=== PATIENT | female | born 1970 | race African-American/Black ===

== ENCOUNTER 2017-01-20 14:31 | Emergency (ER) | payer OTHER ==
[~2017-01-20] VITALS: Ht 165.1 cm; Wt 143.0 kg
[2017-01-20 14:38] VITALS: BP 147/92; PULSE 90; RESP 16; TEMP 98.4; O2SAT 99
[2017-01-20 14:56] LABS: BLOOD, URINE TRACE (NEG); KETONE, URINE NEG (NEG); NITRITE,URINE NEG (NEG); PH, URINE 5.5 (5.0-8.5)
[2017-01-20] MEDS ORDERED: SODIUM CHLOR 0.9% 1000 ML INJ 1,000 ML IV ONE (15:00)
[2017-01-20] MEDS ORDERED: SODIUM CHLORIDE 0.9% FLUSH 5 ML FLUSH IVF PRN (15:00)
--- NOTE | 2017-01-20 15:02 | PD ---
HPI Chief Complaint: General Weakness Time Seen by Provider: 14:44 Travel History International Travel<30 days: No Contact w/Intl Traveler<30days: No Traveled to known affect area: No History of Present Illness HPI Patient is a 46-year-old morbidly obese female presents emergency department with complaint of generalized weakness. Over the course the last 6 weeks she has had increasing weakness, fatigue. She notes polyuria, polydipsia dysuria, hematuria. Patient is not a known diabetic, but a friend of hers took a blood sugar and it was elevated at 398 prompting her ER visit. Patient states that is been approximately 7+ years since she has last seen a primary care physician for annual physical and blood work. She does not have health insurance. [facility] Past Medical History Medical History: Denies Significant Hx Diabetes: No (DENIES) ?: Not Past Surgical History Hysterectomy: Yes (PARTIAL) Social History Tobacco Use: No Allergies-Medications (Allergen,Severity, Reaction): Coded Allergies: Morphine (Verified Allergy, Unknown, Itching, 01/20/17) Reported Meds & Prescriptions Reported Meds & Active Scripts Active No Active Prescriptions or Reported Medications Review of Systems Except as stated in HPI: all other systems reviewed are Neg Physical Exam Narrative GENERAL: Morbidly obese female in no acute distress SKIN: Warm and dry. HEAD: Normocephalic. EYES: No scleral icterus. No injection or drainage. ENT: Mucous membranes pink and moist. NECK: Supple CARDIOVASCULAR: Regular rate and rhythm. No murmur appreciated. RESPIRATORY: No accessory muscle use. Clear to auscultation. Breath sounds equal bilaterally. GASTROINTESTINAL: Abdomen soft, non-tender, nondistended. Morbidly obese MUSCULOSKELETAL: Normal gait. No edema. NEUROLOGICAL: Awake and alert. Normal speech. PSYCHIATRIC: Appropriate mood and affect; insight and judgment normal. Data Data Last Documented VS Vital Signs Date Time Temp Pulse Resp B/P Pulse Ox O2 Delivery O2 Flow Rate FiO2 01/20/17 15:18 96 01/20/17 14:38 98.4 90 16 147/92 Orders Urinalysis - C+S If Indicated (01/20/17 14:45) Complete Blood Count With Diff (01/20/17 14:58) Beta Hydroxybutyrate (Acetone) (01/20/17 14:58) Blood Glucose (01/20/17 14:58) Ecg Monitoring (01/20/17 14:58) Iv Access Insert/Monitor (01/20/17 14:58) Oximetry (01/20/17 14:58) Sodium Chloride 0.9% Flush (Ns Flush) (01/20/17 15:00) Basic Metabolic Panel (Bmp) (01/20/17 14:58) Sodium Chlor 0.9% 1000 Ml Inj (Ns 1000 M (01/20/17 15:00) Urine Culture (01/20/17 14:51) Labs Laboratory Tests Test 01/20/17 01/20/17 14:51 15:05 Urine Collection Type CLEAN CATCH Urine Color STRAW Urine Turbidity SLIGHT Urine pH 5.5 Urine Specific [place] 1.035 Urine Protein NEG mg/dL Urine Glucose (UA) 1000 OR GREATER mg/dL Urine Ketones NEG mg/dL Urine Occult Blood TRACE Urine Nitrite NEG Urine Bilirubin NEG Urine Leukocyte Esterase SMALL Urine RBC 4-9 /hpf Urine WBC 9-14 /hpf Urine Squamous Epithelial 6-8 /hpf Cells Urine Amorphous Sediment FEW Urine Bacteria FEW /hpf Microscopic Urinalysis Comment CULTURE INDICATED Urine Collection Time 1451 White Blood Count 8.4 TH/MM3 Red Blood Count 4.68 MIL/MM3 Hemoglobin 12.4 GM/DL Hematocrit 39.0 % Mean Corpuscular Volume 83.4 FL Mean Corpuscular Hemoglobin 26.5 PG Mean Corpuscular Hemoglobin 31.8 % Concent Red Cell Distribution Width 12.7 % Platelet Count 260 TH/MM3 Mean Platelet Volume 8.5 FL Neutrophils (%) (Auto) 62.7 % Lymphocytes (%) (Auto) 30.9 % Monocytes (%) (Auto) 5.0 % Eosinophils (%) (Auto) 1.1 % Basophils (%) (Auto) 0.3 % Neutrophils # (Auto) 5.3 TH/MM3 Lymphocytes # (Auto) 2.6 TH/MM3 Monocytes # (Auto) 0.4 TH/MM3 Eosinophils # (Auto) 0.1 TH/MM3 Basophils # (Auto) 0.0 TH/MM3 CBC Comment DIFF FINAL Differential Comment Sodium Level 138 MEQ/L Potassium Level 4.1 MEQ/L Chloride Level 101 MEQ/L Carbon Dioxide Level 27.8 MEQ/L Anion Gap 9 MEQ/L Blood Urea Nitrogen 9 MG/DL Creatinine 0.85 MG/DL Estimat Glomerular Filtration 86 ML/MIN Rate Random Glucose 325 MG/DL Calcium Level 9.4 MG/DL [facility] Medical Decision Making Medical Screen Exam Complete: Yes Emergency Medical Condition: Yes Medical Record Reviewed: Yes Differential Diagnosis 46-year-old morbidly obese female here with 6 weeks of generalized weakness, polyuria, polydipsia. Differential includes new onset diabetes, dehydration, electrolyte abnormality, symptomatic anemia, UTI. Narrative Course Patient placed on monitor, IV established and blood obtained. Blood glucose elevated at 298. Given 1 L normal saline bolus. CBC, BMP, beta hydroxybutyrate , urinalysis obtained and notable for blood glucose 325. No ketones there is referred anion gap. Patient will be started on metformin for home. Urinalysis does show glucose, but also small leukocyte esterase with some white cells and few bacteria. Will treat with Bactrim for possible UTI. Diagnosis Primary Impression: New onset type 2 diabetes mellitus Additional Impressions: UTI (urinary tract infection) Qualified Code: N30.00 - Acute cystitis without hematuria Obesity Qualified Code: E66.01 - Morbid obesity, unspecified obesity type Referrals: Vee Jacobs MD call for appointment Primary Care Physician call for appointment Additional Instructions: Antibiotics as prescribed. Metformin as prescribed. Metformin is free of [employer]. Follow-up with primary care provider to establish care and manage diabetes as outpatient. Med/Other Pt SpecificInfo: Prescription(s) given Scripts Metformin 500 Mg [id number] Mg PO BIDPC #60 TAB Ref 0 With meals Prov:Lizeth aBck MD 01/20/17 Sulfamethoxazole-Trimethoprim (Bactrim DS)800-160 Mg Tab1 Tab PO BID #6 TAB Ref 0 Prov:Lizeth Back MD 01/20/17 Disposition: DISCHARGE HOME Condition: Stable Lizeth Back MD Jan 20, 2017 15:01
[2017-01-20 15:04] LABS: GLUCOSE,URINE 1000 OR GREATER mg/dL (NEG)
[2017-01-20 15:05] LABS: METHOD OF COLLECTION CLEAN CATCH; URINE COLOR STRAW (YELLW/STRAW)
[2017-01-20 15:15] LABS: AUTOMATED NEUTROPHIL # 5.3 TH/MM3 (1.8-7.7); BASOPHIL % 0.3 % (0.0-2.0); EOSINOPHIL # 0.1 TH/MM3 (0-0.4); EOSINOPHIL % 1.1 % (0.0-4.0); HEMO FLAGS DIFF FINAL; LYMPH % 30.9 % (9.0-44.0); LYMPHOCYTE # 2.6 TH/MM3 (1.0-4.8); MEAN CELL VOLUME 83.4 FL (80.0-100.0); MEAN CORPUSCULAR HEMOGLOBIN 26.5 PG (27.0-34.0); MEAN CORPUSCULAR HGB CONC 31.8 % (32.0-36.0); NEUT % 62.7 % (16.0-70.0); PLATELET COUNT 260 TH/MM3 (150-450); RED BLOOD COUNT 4.68 MIL/MM3 (4.00-5.30); RED CELL DISTRIBUTION WIDTH 12.7 % (11.6-17.2); WHITE BLOOD COUNT 8.4 TH/MM3 (4.0-11.0)
[2017-01-20 15:18] VITALS: O2SAT 96
[2017-01-20 15:26] LABS: POTASSIUM 4.1 MEQ/L (3.5-5.1)
[2017-01-20 15:27] LABS: BACTERIA, URINE FEW /hpf; COMMENT (UR) CULTURE INDICATED; COMMENT2 (UR) MUCOUS PRESENT; CULTURE IF INDICATED CULTURE INDICATED
[2017-01-20 15:30] LABS: BICARBONATE 27.8 MEQ/L (21.0-32.0)
[2017-01-20] MEDS ORDERED: BACT800T5 PO (15:42)
[2017-01-20] MEDS ORDERED: METF500T PO (15:42)
[2017-01-20 15:44] LABS: BETA-HYDROXYBUTYRATE 0.13 MMOL/L (0.00-0.39)
== END 2017-01-20 16:08 | disposition home or self-care (01) ==
LOC: PHED 14:31
DX: E11.9 Type 2 diabetes mellitus without complications (principal); N39.0 Urinary tract infection, site not specified; E66.01 Morbid (severe) obesity due to excess calories
CPT/HCPCS: 80048; 81001; 82010; 85025; 87086; 96360; 99284; J7030

== ENCOUNTER 2017-03-19 22:26 | Emergency (ER) | payer OTHER ==
[~2017-03-19] VITALS: Ht 160 cm; Wt 146.3 kg
[~2017-03-19 22:26] MED LIST: BACT800T5 PO; METF500T PO
[2017-03-19 22:32] VITALS: BP 138/88; PULSE 77; RESP 16; TEMP 98.2; O2SAT 97
[2017-03-19] MEDS ORDERED: SODIUM CHLOR 0.9% 1000 ML INJ 1,000 ML IV ONE (22:42)
[2017-03-19 22:44] VITALS: BP 138/88; PULSE 77; RESP 18; TEMP 98.2; O2SAT 97
[2017-03-19] MEDS ORDERED: PROCHLORPERAZINE INJ 10 MG/2 ML VIAL IVP ONE (22:45)
[2017-03-19] MEDS ORDERED: diphenhydrAMINE HCL 50 MG/ML VIAL IVP ONE (22:45)
[2017-03-19] MEDS ORDERED: SODIUM CHLORIDE 0.9% FLUSH 10 ML FLUSH IVF PRN (22:45)
[2017-03-19] MEDS ORDERED: KETOROLAC TROMETHAMINE 30 MG/ML (IVP) VIAL IVP ONE (22:45)
[2017-03-19 22:56] VITALS: RESP 18; O2SAT 97
[2017-03-19] MEDS ORDERED: HYDROmorphone HCL PF 1 MG/ML VIAL IVP ONE (23:00)
--- NOTE | 2017-03-19 23:00 | PD ---
HPI Chief Complaint: Headache Time Seen by Provider: 22:42 Travel History International Travel<30 days: No Contact w/Intl Traveler<30days: No Traveled to known affect area: No History of Present Illness HPI The patient is a 47-year-old female who complains of a gradual onset of a bifrontal headache and retro-orbital headache 2 days ago. The patient is a type II diabetic but she ran out of her metformin approximately 2 weeks ago. She did not see a primary care physician about her diabetes. She does have nausea without vomiting. She states the last time she had a headache like this was about 2 years ago. She denies any history of migraine headaches. She denies any focal neurologic change, fever or diarrhea. She does have photophobia/phonophobia PFSH Past Medical History Diabetes: Yes Diminished Hearing: No ?: Not Past Surgical History Section: Yes (x3) Hysterectomy: Yes Social History Alcohol Use: Yes (wine occ) Tobacco Use: No Substance Use: No Allergies-Medications (Allergen,Severity, Reaction): Coded Allergies: Morphine (Verified Allergy, Unknown, Itching, 03/19/17) Reported Meds & Prescriptions Reported Meds & Active Scripts Active Review of Systems Except as stated in HPI: all other systems reviewed are Neg Physical Exam Narrative GENERAL: The patient is alert, obese, anxious appearing in moderate amount of distress with her retro-orbital headache. Her vital signs are normal. SKIN: Focused skin assessment warm/dry. HEAD: Atraumatic. Normocephalic. EYES: Pupils equal and round. No scleral icterus. No injection or drainage. Fundi appear sharp and venous pulsations are seen in the upright position. ENT: No nasal bleeding or discharge. Mucous membranes pink and moist. NECK: Trachea midline. No JVD. There is no meningismus and the patient can flex neck fully so that the chin touches the chest. CARDIOVASCULAR: Regular rate and rhythm. No murmur appreciated. RESPIRATORY: No accessory muscle use. Clear to auscultation. Breath sounds equal bilaterally. GASTROINTESTINAL: Abdomen soft, non-tender, nondistended. Hepatic and splenic margins not palpable. MUSCULOSKELETAL: No obvious deformities. No clubbing. No cyanosis. No edema. NEUROLOGICAL: Awake and alert. No obvious cranial nerve deficits. Motor grossly within normal limits. Normal speech and gait. PSYCHIATRIC: The patient does appear anxious; insight and judgment normal. Data Data Last Documented VS Vital Signs Date Time Temp Pulse Resp B/P Pulse Ox O2 Delivery O2 Flow Rate FiO2 03/19/17 23:56 80 18 142/86 99 Room Air 03/19/17 22:44 98.2 Orders Electrocardiogram (03/19/17 22:42) Complete Blood Count With Diff (03/19/17 22:42) Comprehensive Metabolic Panel (03/19/17 22:42) Magnesium (Mg) (03/19/17 22:42) Troponin I (03/19/17 22:42) Ecg Monitoring (03/19/17 22:42) Iv Access Insert/Monitor (03/19/17 22:42) Oximetry (03/19/17 22:42) Oxygen Administration (03/19/17 22:42) Sodium Chloride 0.9% Flush (Ns Flush) (03/19/17 22:45) Ketorolac Inj (Toradol Inj) (03/19/17 22:45) Prochlorperazine Inj (Compazine Inj) (03/19/17 22:45) Diphenhydramine Inj (Benadryl Inj) (03/19/17 22:45) Sodium Chlor 0.9% 1000 Ml Inj (Ns 1000 M (03/19/17 22:42) Hydromorphone Pf Inj (Dilaudid Pf Inj) (03/19/17 23:00) Labs Laboratory Tests Test 03/19/17 23:10 White Blood Count 8.1 TH/MM3 Red Blood Count 4.26 MIL/MM3 Hemoglobin 11.5 GM/DL Hematocrit 35.3 % Mean Corpuscular Volume 82.9 FL Mean Corpuscular Hemoglobin 26.9 PG Mean Corpuscular Hemoglobin 32.5 % Concent Red Cell Distribution Width 13.1 % Platelet Count 267 TH/MM3 Mean Platelet Volume 8.2 FL Neutrophils (%) (Auto) 55.7 % Lymphocytes (%) (Auto) 37.5 % Monocytes (%) (Auto) 4.7 % Eosinophils (%) (Auto) 1.7 % Basophils (%) (Auto) 0.4 % Neutrophils # (Auto) 4.5 TH/MM3 Lymphocytes # (Auto) 3.1 TH/MM3 Monocytes # (Auto) 0.4 TH/MM3 Eosinophils # (Auto) 0.1 TH/MM3 Basophils # (Auto) 0.0 TH/MM3 CBC Comment DIFF FINAL Differential Comment Sodium Level 141 MEQ/L Potassium Level 3.9 MEQ/L Chloride Level 104 MEQ/L Carbon Dioxide Level 27.1 MEQ/L Anion Gap 10 MEQ/L Blood Urea Nitrogen 11 MG/DL Creatinine 0.72 MG/DL Estimat Glomerular Filtration 104 ML/MIN Rate Random Glucose 193 MG/DL Calcium Level 8.5 MG/DL Magnesium Level 1.8 MG/DL Total Bilirubin 0.2 MG/DL Aspartate Amino Transf 18 U/L (AST/SGOT) Alanine Aminotransferase 23 U/L (ALT/SGPT) Alkaline Phosphatase 75 U/L Troponin I LESS THAN 0.02 NG/ML Total Protein 6.9 GM/DL Albumin 3.1 GM/DL [facility] Medical Decision Making Medical Screen Exam Complete: Yes Emergency Medical Condition: Yes Medical Record Reviewed: Yes Interpretation(s) The CBC is normal except for a minimal anemia with a hemoglobin of 11.5. The complete metabolic profile shows a glucose of 193 and albumen of 3.1 but is otherwise unremarkable. The troponin I is normal. The EKG shows normal sinus rhythm with a rate of 73 and is completely normal. Differential Diagnosis Migraine headache, tension headache, normal pressure hydrocephalusunlikely, intracranial bleedunlikely Narrative Course It is now 001 2 in the morning and the patient headache has resolved, she is not nauseated and she was sleeping. Impression: Headache. This may be a tension headache or atypical migraine headache. She did have photophobia/phonophobia and this may be a migraine headache. Diagnosis Primary Impression: Migraine headache Additional Instructions: Try to go home and sleep. This is good for a headache to sleep. Follow-up with your primary care physician this week or early next week about this headache. Med/Other Pt SpecificInfo: Prescription(s) given Scripts Promethazine (Phenergan)25 Mg Tab25 Mg PO Q6H PRN (Nausea/Vomiting) #20 TAB Ref 0 Prov:Jose Suazo MD 03/20/17 Disposition: 01 DISCHARGE HOME Condition: Stable Jose Suazo MD Mar 19, 2017 23:00
[2017-03-19 23:26] LABS: AUTOMATED NEUTROPHIL # 4.5 TH/MM3 (1.8-7.7); BASOPHIL % 0.4 % (0.0-2.0); EOSINOPHIL # 0.1 TH/MM3 (0-0.4); EOSINOPHIL % 1.7 % (0.0-4.0); HEMATOCRIT 35.3 % (35.0-46.0); HEMO FLAGS DIFF FINAL; LYMPH % 37.5 % (9.0-44.0); LYMPHOCYTE # 3.1 TH/MM3 (1.0-4.8); MEAN CELL VOLUME 82.9 FL (80.0-100.0); MEAN CORPUSCULAR HEMOGLOBIN 26.9 PG (27.0-34.0); MEAN CORPUSCULAR HGB CONC 32.5 % (32.0-36.0); MONO % 4.7 % (0.0-8.0); NEUT % 55.7 % (16.0-70.0); PLATELET COUNT 267 TH/MM3 (150-450); RED BLOOD COUNT 4.26 MIL/MM3 (4.00-5.30); RED CELL DISTRIBUTION WIDTH 13.1 % (11.6-17.2); WHITE BLOOD COUNT 8.1 TH/MM3 (4.0-11.0)
[2017-03-19 23:34] LABS: CHLORIDE 104 MEQ/L (98-107); POTASSIUM 3.9 MEQ/L (3.5-5.1); SODIUM (NA) 141 MEQ/L (136-145)
[2017-03-19 23:37] LABS: ANION GAP 10 MEQ/L (5-15); BICARBONATE 27.1 MEQ/L (21.0-32.0); BLOOD UREA NITROGEN 11 MG/DL (7-18); MAGNESIUM 1.8 MG/DL (1.5-2.5)
[2017-03-19 23:40] LABS: ALT (GPT) 23 U/L (10-53); AST (GOT) 18 U/L (15-37); GLOMERULAR FILTRATION RATE 104 ML/MIN (>89)
[2017-03-19 23:42] LABS: TOTAL BILIRUBIN ADULT 0.2 MG/DL (0.2-1.0)
[2017-03-19 23:43] LABS: ALKALINE PHOSPHATASE 75 U/L (45-117)
[2017-03-19 23:56] VITALS: BP 142/86; PULSE 80; RESP 18; O2SAT 99
[2017-03-20] MEDS ORDERED: PROM25TA5 PO (00:16)
[2017-03-20] MEDS ORDERED: BUTA1CAP PO (00:25)
[2017-03-20 00:46] VITALS: BP 121/64
--- NOTE | 2017-03-20 13:43 | EKG ---
Date Performed: 03/19/2017 Time Performed: 23:10:32 PTAGE: 47 years EKG: Sinus rhythm Normal ECG NO PREVIOUS TRACING DOCTOR: Chapincito Kumar Interpretating Date/Time 03/20/2017 13:41:02
== END 2017-03-20 00:47 | disposition home or self-care (01) ==
LOC: PHED 22:26
DX: G43.909 Migraine, unspecified, not intractable, without status migrainosus (principal); R11.0 Nausea; E11.9 Type 2 diabetes mellitus without complications
CPT/HCPCS: 80053; 83735; 84484; 85025; 93005; 96361; 96374; 96375; 99284; J0780; J1170; J1200; J1885; J7030

== ENCOUNTER 2018-01-18 21:46 | Emergency (ER) | payer SELFPAY ==
[~2018-01-18] VITALS: Ht 162.6 cm; Wt 143.0 kg
[~2018-01-18 21:46] MED LIST changes: -BACT800T5 PO; +BUTA1CAP PO; -METF500T PO; +PROM25TA5 PO
[2018-01-18 22:04] VITALS: BP 138/65; PULSE 79; RESP 18; TEMP 98.4; O2SAT 97
--- NOTE | 2018-01-18 22:39 | PD ---
HPI Chief Complaint: GI Complaint Time Seen by Provider: 22:31 Travel History International Travel<30 days: No Contact w/Intl Traveler<30days: No Traveled to known affect area: No History of Present Illness HPI The patient is a 47-year-old female that complains of nausea and vomiting without diarrhea beginning today. The patient also has dysuria, frequency and urgency. She denies any blood in the vomitus or stool. She denies any fever. The patient had metformin controlled diabetes but does not have a doctor and ran out of her diabetic medications. She is not taking any medications for about a year. She does not have any insurance and cannot afford a doctor. The patient has vertigo and any movements of her head causes her to get nauseated. PFSH Past Medical History Diabetes: Yes (no medications) Diminished Hearing: No Immunizations Current: Yes ?: Not Past Surgical History Section: Yes (x3) Hysterectomy: Yes Social History Alcohol Use: Yes (wine occ) Tobacco Use: No Substance Use: No Allergies-Medications (Allergen,Severity, Reaction): Coded Allergies: morphine (Unverified Allergy, Unknown, Itching, 01/19/18) Reported Meds & Prescriptions Reported Meds & Active Scripts Active Fioricet (Cgihskerpo-Qflibyknqtadf-Hikcjggm) 50-300-40 Mg Cap 1-2 Cap PO Q6H PRN Reported Ibuprofen 800 Mg Tab 800 Mg PO TID Flexeril (Cyclobenzaprine HCl) 5 Mg Tab 5 Mg PO TID Clindamycin (Clindamycin HCl) 150 Mg Cap 150 Mg PO Q6H Review of Systems Except as stated in HPI: all other systems reviewed are Neg Physical Exam Narrative GENERAL: The patient is alert, mildly dehydrated appearing, oriented 3, morbidly obese and minimal apparent distress with her nausea and vomiting. Her vital signs are normal. SKIN: Focused skin assessment warm/dry. HEAD: Atraumatic. Normocephalic. EYES: Pupils equal and round. No scleral icterus. No injection or drainage. ENT: No nasal bleeding or discharge. Mucous membranes pink and moist. NECK: Trachea midline. No JVD. CARDIOVASCULAR: Regular rate and rhythm. No murmur appreciated. RESPIRATORY: No accessory muscle use. Clear to auscultation. Breath sounds equal bilaterally. GASTROINTESTINAL: Abdomen soft, with minimal tenderness to direct palpation in the midline epigastrium, nondistended. Hepatic and splenic margins not palpable. No guarding or rebound is present. MUSCULOSKELETAL: No obvious deformities. No clubbing. No cyanosis. No edema. NEUROLOGICAL: Awake and alert. No obvious cranial nerve deficits. Motor grossly within normal limits. Normal speech. PSYCHIATRIC: Appropriate mood and affect; insight and judgment normal. Data Data Last Documented VS Vital Signs Date Time Temp Pulse Resp B/P (MAP) Pulse Ox O2 Delivery O2 Flow Rate FiO2 01/18/18 23:15 73 16 141/63 (89) 99 Room Air 01/18/18 22:04 98.4 Orders Orders Ondansetron Inj (Zofran Inj) (01/18/18 22:45) Sodium Chlor 0.9% 1000 Ml Inj (Ns 1000 M (01/18/18 22:45) Beta Hcg (Quant/Titer) (01/18/18 22:31) Complete Blood Count With Diff (01/18/18 22:31) Comprehensive Metabolic Panel (01/18/18 22:31) Lipase (01/18/18 22:31) Urinalysis - C+S If Indicated (01/18/18 22:31) Iv Access Insert/Monitor (01/18/18 22:31) Ecg Monitoring (01/18/18 22:31) Oximetry (01/18/18 22:31) Sodium Chloride 0.9% Flush (Ns Flush) (01/18/18 22:45) Beta Hydroxybutyrate (Acetone) (01/18/18 22:30) Urine Culture (01/18/18 22:35) Ondansetron Inj (Zofran Inj) (01/18/18 23:45) Ketorolac Inj (Toradol Inj) (01/19/18 00:00) Labs Laboratory Tests Test 01/18/18 22:30 01/18/18 22:35 White Blood Count 8.1 TH/MM3 Red Blood Count 4.53 MIL/MM3 Hemoglobin 12.7 GM/DL Hematocrit 37.8 % Mean Corpuscular Volume 83.3 FL Mean Corpuscular Hemoglobin 28.0 PG Mean Corpuscular Hemoglobin Concent 33.6 % Red Cell Distribution Width 12.9 % Platelet Count 264 TH/MM3 Mean Platelet Volume 8.9 FL Neutrophils (%) (Auto) 63.7 % Lymphocytes (%) (Auto) 28.1 % Monocytes (%) (Auto) 5.7 % Eosinophils (%) (Auto) 2.0 % Basophils (%) (Auto) 0.5 % Neutrophils # (Auto) 5.1 TH/MM3 Lymphocytes # (Auto) 2.3 TH/MM3 Monocytes # (Auto) 0.5 TH/MM3 Eosinophils # (Auto) 0.2 TH/MM3 Basophils # (Auto) 0.0 TH/MM3 CBC Comment DIFF FINAL Differential Comment Blood Urea Nitrogen 11 MG/DL Creatinine 0.88 MG/DL Random Glucose 291 MG/DL Total Protein 7.2 GM/DL Albumin 3.1 GM/DL Calcium Level 8.1 MG/DL Alkaline Phosphatase 102 U/L Aspartate Amino Transf (AST/SGOT) 19 U/L Alanine Aminotransferase (ALT/SGPT) 23 U/L Total Bilirubin 0.2 MG/DL Sodium Level 135 MEQ/L Potassium Level 4.0 MEQ/L Chloride Level 101 MEQ/L Carbon Dioxide Level 27.8 MEQ/L Anion Gap 6 MEQ/L Estimat Glomerular Filtration Rate 83 ML/MIN Lipase 171 U/L Human Chorionic Gonadotropin, Quant LESS THAN 1 MIU/ML B-Hydroxybutyrate 0.16 MMOL/L Urine Color YELLOW Urine Turbidity SLIGHT Urine pH 6.5 Urine Specific [place] 1.034 Urine Protein NEG mg/dL Urine Glucose (UA) 1000 OR GREATER mg/dL Urine Ketones TRACE mg/dL Urine Occult Blood NEG Urine Nitrite NEG Urine Bilirubin NEG Urine Leukocyte Esterase SMALL Urine WBC 15-19 /hpf Urine Squamous Epithelial Cells > 8 /hpf Urine Amorphous Sediment SMALL Urine Bacteria FEW /hpf Urine Mucus OCC /lpf Microscopic Urinalysis Comment CULTURE INDICATED MDM Medical Decision Making Medical Screen Exam Complete: Yes Emergency Medical Condition: Yes Medical Record Reviewed: Yes Interpretation(s) The CBC is normal. The beta hydroxybutyrate is 0.16. The urine shows 1000 or greater glucose, specific gravity 1.034, slight turbidity, trace ketones, small leukocyte esterase with 15-19 white cells and few bacteria and culture is indicated. The complete metabolic profile shows a sodium of 135, glucose 291 with GFR of 83 and albumen 3.1 but is otherwise normal. The beta-hCG is less than 1. Differential Diagnosis Noncompliance to medications, noncompliance to physician follow-up, hyperglycemia, pancreatitis, benign positional vertigo, labyrinthitis, electrolyte disorder, hyper/hypoglycemia Narrative Course The patient appears to have a urinary tract infection. She does have some flank tenderness bilaterally. She has noncompliance to medications and medical follow-up. She is to get a doctor. I will write her a temporary prescription for metformin 500 mg twice daily and Cipro 500 mg twice daily for the urinary infection Diagnosis Primary Impression: Poorly controlled diabetes mellitus Additional Impressions: UTI (urinary tract infection) Noncompliance Additional Instructions: As we discussed, you cannot get proper follow-up for diabetes by visiting the emergency department. You need a primary care physician. Both the Cipro antibiotic and the metformin or 500 mg taken twice daily. Increase liquid intake. Med/Other Pt SpecificInfo: Prescription(s) given Scripts Metformin (Metformin) 500 Mg Tab 500 MG PO BIDPC for Blood Sugar Management, #60 TAB 0 Refills Prov: Jose Suazo MD 01/19/18 Ciprofloxacin (Cipro) 500 Mg Tab 500 MG PO BID for Infection for 10 Days, #20 TAB 0 Refills Prov: Jose Suazo MD 01/19/18 Disposition: 01 DISCHARGE HOME Condition: Stable Jose Suazo MD Jan 18, 2018 22:39
[2018-01-18] MEDS ORDERED: SODIUM CHLORIDE 0.9% FLUSH 10 ML FLUSH IV FLUSH PRN (22:45)
[2018-01-18] MEDS ORDERED: ONDANSETRON HCL 4 MG/2 ML VIAL IV ONE ×2 (22:45→23:45)
[2018-01-18 22:52] LABS: AUTOMATED NEUTROPHIL # 5.1 TH/MM3 (1.8-7.7); BASOPHIL % 0.5 % (0.0-2.0); EOSINOPHIL # 0.2 TH/MM3 (0-0.4); HEMATOCRIT 37.8 % (35.0-46.0); HEMOGLOBIN 12.7 GM/DL (11.6-15.3); LYMPH % 28.1 % (9.0-44.0); LYMPHOCYTE # 2.3 TH/MM3 (1.0-4.8); MEAN CELL VOLUME 83.3 FL (80.0-100.0); MEAN CORPUSCULAR HGB CONC 33.6 % (32.0-36.0); MEAN PLATELET VOLUME 8.9 FL (7.0-11.0); MONO % 5.7 % (0.0-8.0); MONOCYTE # 0.5 TH/MM3 (0-0.9); NEUT % 63.7 % (16.0-70.0); PLATELET COUNT 264 TH/MM3 (150-450); RED BLOOD COUNT 4.53 MIL/MM3 (4.00-5.30); RED CELL DISTRIBUTION WIDTH 12.9 % (11.6-17.2); WHITE BLOOD COUNT 8.1 TH/MM3 (4.0-11.0)
[2018-01-18 22:57] LABS: BILIRUBIN, URINE NEG (NEG); BLOOD, URINE NEG (NEG); GLUCOSE,URINE 1000 OR GREATER mg/dL (NEG); KETONE, URINE TRACE mg/dL (NEG); NITRITE,URINE NEG (NEG); PH, URINE 6.5 (5.0-8.5); URINE LEUKOCYTE ESTERASE SMALL (NEG)
[2018-01-18] MEDS: SODIUM CHLOR 0.9% 1000 ML INJ 1,000 ML IV SCH ×2 (23:01→23:48)
[2018-01-18 23:05] LABS: CHLORIDE 101 MEQ/L (98-107); SODIUM (NA) 135 MEQ/L (136-145)
[2018-01-18 23:08] LABS: CALCIUM 8.1 MG/DL (8.5-10.1)
[2018-01-18 23:09] LABS: ALBUMIN 3.1 GM/DL (3.4-5.0); BICARBONATE 27.8 MEQ/L (21.0-32.0); BLOOD UREA NITROGEN 11 MG/DL (7-18); GLUCOSE,RANDOM 291 MG/DL (74-106)
[2018-01-18 23:10] VITALS: O2SAT 98
[2018-01-18 23:12] LABS: ALT (GPT) 23 U/L (10-53); AST (GOT) 19 U/L (15-37); CREATININE 0.88 MG/DL (0.50-1.00); GLOMERULAR FILTRATION RATE 83 ML/MIN (>89)
[2018-01-18 23:13] LABS: TOTAL BILIRUBIN ADULT 0.2 MG/DL (0.2-1.0); TOTAL PROTEIN 7.2 GM/DL (6.4-8.2)
[2018-01-18 23:14] LABS: ALKALINE PHOSPHATASE 102 U/L (45-117)
[2018-01-18 23:15] VITALS: BP 141/63; PULSE 73; RESP 16; O2SAT 99
[2018-01-18 23:16] LABS: MUCUS URINE OCC /lpf (OCC); SQUAMOUS EPITHELIAL CELL URINE > 8 /hpf (0-5); URINE COLOR YELLOW (YELLW/STRAW)
[2018-01-18 23:17] LABS: WBC, URINE 15-19 /hpf (0-5)
[2018-01-18 23:18] LABS: AMORPHOUS SEDIMENT, URINE SMALL; BACTERIA, URINE FEW /hpf
[2018-01-19] MEDS ORDERED: KETOROLAC TROMETHAMINE 60 MG/2 ML (IM) VIAL IVP ONE
[2018-01-19] MEDS ORDERED: IBUP1TAB7 PO (00:20)
[2018-01-19] MEDS ORDERED: CYCL5TAB PO (00:20)
[2018-01-19] MEDS ORDERED: CLIN150C14 PO (00:20)
[2018-01-19] MEDS ORDERED: METF500T PO (00:39)
[2018-01-19] MEDS ORDERED: CIPR-9 PO (00:39)
[2018-01-19] MEDS ORDERED: CIPROFLOXACIN 500 MG TAB PO ONE (00:45)
[2018-01-19] MEDS ORDERED: metFORMIN HCL 500 MG TAB PO ONE (00:45)
[2018-01-19 01:05] VITALS: BP 143/66
== END 2018-01-19 02:02 | disposition home or self-care (01) ==
LOC: PHED 21:46
DX: N39.0 Urinary tract infection, site not specified (principal); E11.65 Type 2 diabetes mellitus with hyperglycemia; R11.2 Nausea with vomiting, unspecified; Z91.14 Patient's other noncompliance with medication regimen; Z88.5 Allergy status to narcotic agent; Z79.899 Other long term (current) drug therapy
CPT/HCPCS: 80053; 81001; 82010; 83690; 84702; 85025; 87086; 96361; 96374; 96375; 96376; 99284; J1885; J2405; J7030

== ENCOUNTER 2018-05-21 13:06 | Emergency (ER) | payer SELFPAY ==
[~2018-05-21 13:06] MED LIST changes: +CIPR-9 PO; +CLIN150C14 PO; +CYCL5TAB PO; +IBUP1TAB7 PO; +METF500T PO; -PROM25TA5 PO
[2018-05-21 13:14] VITALS: BP 125/71; PULSE 91; RESP 20; TEMP 98.3; O2SAT 99
--- NOTE | 2018-05-21 14:07 | PD ---
HPI Chief Complaint: Respiratory Symptoms Time Seen by Provider: 13:47 Travel History International Travel<30 days: No Contact w/Intl Traveler<30days: No Traveled to known affect area: No History of Present Illness HPI This is a 48-year-old female who presents to the emergency department with headache, shortness of breath and generalized fatigue that has been going on over the past several months. She has been living in a house that she thinks has mold in it. She says the shortness of breath is worse with exertion and worse with laying flat. Says her son has woken her up several times in the night because he was concerned she was choking. She also reports that she has a dull frontal headache, constant, mild, this feels different from her typical sinus headaches. She does not currently have a primary care physician or insurance. She has been off of her diabetes medication because of this. [facility] Past Medical History Diabetes: Yes (no medications) Patient Takes Glucophage: No Diminished Hearing: No Immunizations Current: Yes Influenza Vaccination: No ?: Not Past Surgical History Section: Yes (x3) Hysterectomy: Yes Tonsillectomy: Yes Social History Alcohol Use: Yes (wine occ) Tobacco Use: No Substance Use: No Allergies-Medications (Allergen,Severity, Reaction): Coded Allergies: morphine (Unverified Allergy, Unknown, Itching, 05/21/18) Reported Meds & Prescriptions Reported Meds & Active Scripts Active No Active Prescriptions or Reported Medications Review of Systems Except as stated in HPI: all other systems reviewed are Neg Physical Exam Narrative GENERAL: Morbidly obese, no acute distress SKIN: Focused skin assessment warm and dry. HEAD: Atraumatic. Normocephalic. EYES: Pupils equal and round. No injection or drainage. ENT: Moist mucous membranes NECK: Trachea midline. CARDIOVASCULAR: Regular rate and rhythm. No murmur appreciated. RESPIRATORY: Clear to auscultation. Breath sounds equal bilaterally. GASTROINTESTINAL: Abdomen soft, non-tender, nondistended. MUSCULOSKELETAL: No obvious deformities. NEUROLOGICAL: Awake and alert. No obvious cranial nerve deficits. Moving all extremities. PSYCHIATRIC: Appropriate mood and affect; insight and judgment normal. Data Data Last Documented VS Vital Signs Date Time Temp Pulse Resp B/P (MAP) Pulse Ox O2 Delivery O2 Flow Rate FiO2 05/21/18 14:31 18 05/21/18 13:14 98.3 91 125/71 (89) 99 Orders Orders Complete Blood Count With Diff (05/21/18 14:00) Comprehensive Metabolic Panel (05/21/18 14:00) Chest, Pa & Lat (05/21/18 ) Labs Laboratory Tests Test 05/21/18 14:20 White Blood Count 7.2 TH/MM3 Red Blood Count 4.38 MIL/MM3 Hemoglobin 12.1 GM/DL Hematocrit 37.3 % Mean Corpuscular Volume 85.1 FL Mean Corpuscular Hemoglobin 27.7 PG Mean Corpuscular Hemoglobin Concent 32.6 % Red Cell Distribution Width 13.0 % Platelet Count 258 TH/MM3 Mean Platelet Volume 8.5 FL Neutrophils (%) (Auto) 61.8 % Lymphocytes (%) (Auto) 30.5 % Monocytes (%) (Auto) 5.0 % Eosinophils (%) (Auto) 1.4 % Basophils (%) (Auto) 1.3 % Neutrophils # (Auto) 4.4 TH/MM3 Lymphocytes # (Auto) 2.2 TH/MM3 Monocytes # (Auto) 0.4 TH/MM3 Eosinophils # (Auto) 0.1 TH/MM3 Basophils # (Auto) 0.1 TH/MM3 CBC Comment DIFF FINAL Differential Comment Blood Urea Nitrogen 13 MG/DL Random Glucose 235 MG/DL Albumin 3.4 GM/DL Calcium Level 8.7 MG/DL Sodium Level 137 MEQ/L Potassium Level 3.9 MEQ/L Chloride Level 104 MEQ/L Carbon Dioxide Level 25.7 MEQ/L Anion Gap 7 MEQ/L MDM Medical Decision Making Medical Screen Exam Complete: Yes Emergency Medical Condition: Yes Interpretation(s) Hyperglycemia Differential Diagnosis Sinusitis, bronchitis, asthma, obesity hypoventilation, obstructive sleep apnea Narrative Course This is a 48-year-old female who presents to the emergency department with multiple nonspecific symptoms including shortness of breath, headache and fatigue. She is morbidly obese. She is placed on a monitor and IV was established. Labs are reassuring and chest x-ray is unremarkable. She is not hypoxic here in the emergency department and I do not appreciate any wheezing. Her symptoms are chronic in nature. I suspect she has obstructive sleep apnea which may be contributing to some of her symptoms. She also may be suffering from some obesity hypoventilation. She requires a primary care physician. She was given referrals to both [facility] and the [facility]. I did prescribe her her Metformin. Diagnosis Primary Impression: Headache Qualified Codes: R51 - Headache Referrals: [facility] Patient Instructions: General Instructions Additional Instructions: If you develop severe worsening headache, persistent vomiting, numbness, weakness, difficulty walking or difficulty talking return to the emergency department immediately. It is very important that you follow up with a primary care physician for management of your chronic conditions as you likely have obstructive sleep apnea. Med/Other Pt SpecificInfo: Prescription(s) given Scripts Metformin (Metformin) 500 Mg Tab 500 MG PO BIDPC for Blood Sugar Management, #60 TAB 0 Refills Prov: Preeti Johnson MD 05/21/18 Disposition: 01 DISCHARGE HOME Condition: Stable Preeti Johnson MD May 21, 2018 14:07
[2018-05-21 14:31] LABS: AUTOMATED NEUTROPHIL # 4.4 TH/MM3 (1.8-7.7); BASOPHIL # 0.1 TH/MM3 (0-0.2); BASOPHIL % 1.3 % (0.0-2.0); EOSINOPHIL # 0.1 TH/MM3 (0-0.4); EOSINOPHIL % 1.4 % (0.0-4.0); HEMATOCRIT 37.3 % (35.0-46.0); HEMOGLOBIN 12.1 GM/DL (11.6-15.3); LYMPH % 30.5 % (9.0-44.0); LYMPHOCYTE # 2.2 TH/MM3 (1.0-4.8); MEAN CELL VOLUME 85.1 FL (80.0-100.0); MEAN CORPUSCULAR HEMOGLOBIN 27.7 PG (27.0-34.0); MEAN CORPUSCULAR HGB CONC 32.6 % (32.0-36.0); MEAN PLATELET VOLUME 8.5 FL (7.0-11.0); MONOCYTE # 0.4 TH/MM3 (0-0.9); NEUT % 61.8 % (16.0-70.0); PLATELET COUNT 258 TH/MM3 (150-450); RED BLOOD COUNT 4.38 MIL/MM3 (4.00-5.30); WHITE BLOOD COUNT 7.2 TH/MM3 (4.0-11.0)
--- NOTE | 2018-05-21 14:40 | RADRPT ---
EXAM DATE: 05/21/2018 2:14 PM EDT AGE/SEX: 48 years / Female INDICATIONS: Coughing, wheezing, chest burning,substernal pain/pressure mostly on a deep inspiration for a few weeks. CLINICAL DATA: This is the patient's initial encounter. Patient reports that signs and symptoms have been present for 3 weeks and indicates a pain score of 5/10. MEDICAL/SURGICAL HISTORY: Diabetes. Tonsillectomy. Hysterectomy. Chest tube, left. COMPARISON: No prior exams available for comparison. FINDINGS: PA and lateral views of the chest demonstrate the lungs to be symmetrically aerated without evidence of mass, infiltrate or effusion. The cardiomediastinal contours are unremarkable. Osseous structures are intact. CONCLUSION: No acute cardiopulmonary process. Electronically signed by: Jose E Duke MD 05/21/2018 2:39 PM EDT
[2018-05-21 14:46] LABS: CHLORIDE 104 MEQ/L (98-107); SODIUM (NA) 137 MEQ/L (136-145)
[2018-05-21 14:49] LABS: ALBUMIN 3.4 GM/DL (3.4-5.0); CALCIUM 8.7 MG/DL (8.5-10.1)
[2018-05-21 14:50] LABS: BICARBONATE 25.7 MEQ/L (21.0-32.0); BLOOD UREA NITROGEN 13 MG/DL (7-18); GLUCOSE,RANDOM 235 MG/DL (74-106)
[2018-05-21 14:53] LABS: ALT (GPT) 25 U/L (10-53); AST (GOT) 15 U/L (15-37); CREATININE 0.83 MG/DL (0.50-1.00); GLOMERULAR FILTRATION RATE 88 ML/MIN (>89)
[2018-05-21 14:54] LABS: TOTAL BILIRUBIN ADULT 0.2 MG/DL (0.2-1.0); TOTAL PROTEIN 7.5 GM/DL (6.4-8.2)
[2018-05-21] MEDS ORDERED: METF500T PO (14:54)
[2018-05-21 14:56] LABS: ALKALINE PHOSPHATASE 91 U/L (45-117)
[2018-05-21] MEDS ORDERED: MELO7.5T27 PO (15:07)
== END 2018-05-21 15:15 | disposition home or self-care (01) ==
LOC: PHED 13:06
DX: R51 Headache (principal); R06.02 Shortness of breath; R53.83 Other fatigue; E11.9 Type 2 diabetes mellitus without complications; E66.01 Morbid (severe) obesity due to excess calories
CPT/HCPCS: 71046; 80053; 85025; 99284